=== PATIENT | male | born 1975 | race African-American/Black ===

== ENCOUNTER 2016-12-18 12:59 | Inpatient (IN) | payer OTHER ==
[2016-12-18 13:28] VITALS: BMI 22.0
--- NOTE | 2016-12-18 14:37 | HP ---
COWS - Scale Resting Pulse: 0= ND 80 or Below Sweatin= Chills/Flushing Restless Observation: 3= Extraneous Movement Pupil Size: 2= Moderately Dilated Bone or Joint Aches: 4=Acute Joint/Muscle Pain Runny Nose/ Eye Tearin= Runny Nose/Eyes GI Upset > 30mins: 1= Stomach Cramp Tremor Observation: 2= Slight Tremor Visible Yawning Observation: 2= >3x During Session Anxiety or Irritability: 2=Irritable/Anxious Goose Flesh Skin: 0=Smooth Skin COWS Score: 19 Admission ROS S - HPI Chief Complaint: DETOX TX FOR HEROIN DEPENDENCE Allergies/Adverse Reactions: Allergies Allergy/AdvReac Type Severity Reaction Status Date / Time No Known Allergies Allergy Verified 12/18/16 13:59 History of Present Illness: 41 Y/O AA/MALE WITH A HX OF HEROIN DEPENDENCE SEEKING DETOX [place] Exam Limitations: No Limitations - Ebola screening Have you traveled outside of the country in the last 21 days: No Have you had contact with anyone from an Ebola affected area: No Have you been sick,other than usual withdrawal symptoms: No Do you have a fever: No - Review of Systems Constitutional: Chills, Loss of Appetite, Night Sweats, Changes in sleep, Unintentional Wgt. Loss EENT: reports: Tearing, Nose Congestion, Dental Problems (MISSING TEETH) Respiratory: reports: Cough, Productive cough (YELLOWISH WHITE SPUTUM) Cardiac: reports: Lightheadedness GI: reports: Constipated, Diarrhea, Nausea, Poor Appetite, Poor Fluid Intake, Vomiting : reports: Dysuria (DUE TO ACTIVE HEROIN USE) Musculoskeletal: reports: Back Pain, Joint Pain, Muscle Pain Integumentary: reports: Dryness Neuro: reports: Headache, Numbness, Tingling, Tremors, Unsteady Gait, Dizziness Endocrine: reports: No Symptoms Reported Hematology: reports: Anemia (X 1.) Psychiatric: reports: Orientated x3, Anxious Other Systems: Reviewed and Negative Patient History - Patient Medical History Hx Anemia: Yes (X 1. NO CURRENT MED) Hx Asthma: No Hx Chronic Obstructive Pulmonary Disease (COPD): No Hx Cardiac Disorders: No Hx Hypertension: No Hx Hypercholesterolemia: No HX Cerebrovascular Accident: No Hx Seizures: No Hx Diabetes: No Hx Gastrointestinal Disorders: No Hx Genitourinary Disorders: No Hx Sexually Transmitted Disorders: No Hx Renal Disease (ESRD): No Hx Thyroid Disease: No Hx Human Immunodeficiency Virus (HIV): No (NEGATIVE HX) Hx Hepatitis C: No Hx Depression: No Hx Suicide Attempt: No (DENIES) Hx Schizophrenia: No - Patient Surgical History Past Surgical History: No Hx Neurologic Surgery: No Hx Cataract Extraction: No Hx Cardiac Surgery: No Hx Lung Surgery: No Hx Breast Surgery: No Hx Breast Biopsy: No Hx Abdominal Surgery: No Hx Appendectomy: No Hx Cholecystectomy: No Hx Genitourinary Surgery: No Hx Orthopedic Surgery: No Anesthesia Reaction: No - PPD History Previous Implant?: Yes Documented Results: Negative w/o proof Implanted On Prior [facility] Admission?: No PPD to be Administered?: Yes - Reproductive History Patient is a Female of Child Bearing Age (11 -55 yrs old): No (MALE) - Smoking Cessation Smoking history: Current every day smoker Have you smoked in the past 12 months: Yes Aproximately how many cigarettes per day: 20 Hx Chewing Tobacco Use: No Initiated information on smoking cessation: Yes 'Breaking Loose' booklet given: 12/18/16 - Substance & Tx. History Hx Alcohol Use: No (DENIES) Hx Substance Use: Yes (HEROIN) Substance Use Type: Heroin Hx Substance Use Treatment: Yes ([facility]) - Substances Abused Heroin Route: Inhalation Frequency: Daily Amount used: 10 bags Age of first use: 34 Date of Last Use: 12/18/16 Family Disease History - Family Disease History Family Disease History: Diabetes: Mother (HTN), CA: Grandparent (), Father (ALCOHOLISM-), Other: Father, Mother Admission Physical Exam BHS - Vital Signs Vital Signs: Vital Signs - 24 hr 12/18/16 13:20 Temperature 96.9 F L Pulse Rate 61 Respiratory 18 Rate Blood Pressure 120/70 - Physical General Appearance: Yes: Moderate Distress, Thin, Irritable, Anxious HEENTM: Yes: EOMI, RAFIA, Pharynx Normal, Nasal Congestion, Rhinorrhea Respiratory: Yes: Chest Non-Tender, Lungs Clear, Normal Breath Sounds, No Respiratory Distress Neck: Yes: Supple, Trachea in good position Breast: Yes: Breast Exam Deferred Cardiology: Yes: Regular Rhythm, Regular Rate, S1, S2 Abdominal: Yes: Normal Bowel Sounds, Non Tender, Flat, Soft Genitourinary: Yes: Other (N/C) Back: Yes: Within Normal Limits Musculoskeletal: Yes: full range of Motion, Gait Steady Extremities: Yes: Normal Range of Motion, Non-Tender 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
[2016-12-18] MEDS ORDERED: NICOTINE POLACRILEX 2 MG GUM BC PRN ×2 (14:51→14:55)
[2016-12-18] MEDS ORDERED: hydrOXYzine PAMOATE 25 MG CAPSULE (FP) PO PRN (14:51)
[2016-12-18] MEDS ORDERED: MENTHOL/PHENOL 1 EACH UD MM PRN (14:51)
[2016-12-18] MEDS ORDERED: MAG HYDROX/AL HYDROX/SIMETH 30 ML UNIT-DOSE CUP PO PRN (14:51)
[2016-12-18] MEDS ORDERED: P-EPHED 60MG/TRIPROLIDI 2.5MG TABLET PO PRN (14:51)
[2016-12-18] MEDS ORDERED: diphenhydrAMINE HCL 50 MG CAPSULE PO PRN (14:51)
[2016-12-18] MEDS ORDERED: ACETAMINOPHEN 325 MG TABLET (FP) PO PRN (14:51)
[2016-12-18] MEDS ORDERED: LOPERAMIDE HCL 2 MG CAPSULE PO PRN (14:51)
[2016-12-18] MEDS ORDERED: MAGNESIUM HYDROX 2400MG/30ML ORAL SUSPENSION 30 ML CUP PO PRN (14:51)
[2016-12-18] MEDS ORDERED: MAGNESIUM CITRATE 300 ML BOTTLE PO PRN (14:51)
[2016-12-18] MEDS ORDERED: guaiFENesin/D-METHORPHAN HB 10 ML UNIT-DOSE CUPS PO PRN (14:51)
[2016-12-18] MEDS ORDERED: NICOTINE 14 MG/24 HOURS TOPICAL PATCH TD SCH (15:00)
[2016-12-18] MEDS ORDERED: METHADONE HCL 10 MG TABLET (FOR DETOX USE ONLY) PO ONE ×2 (17:30→23:00)
[2016-12-18] MEDS: NICOTINE 14 MG/24 HOURS TOPICAL PATCH TD SCH (18:00)
[2016-12-18] MEDS: diazePAM 5 MG TABLET PO PRN ×2 (18:02→22:10)
[2016-12-18] MEDS: THIAMINE HCL 100 MG TABLET (FP) PO SCH (22:10)
[2016-12-19] MEDS: diazePAM 5 MG TABLET PO PRN ×4 (06:58→22:52)
[2016-12-19] MEDS ORDERED: METHADONE HCL 10 MG TABLET (FOR DETOX USE ONLY) PO ONE (10:00)
[2016-12-19 10:50] LABS: MCH 31.9 pg (25.7-33.7); MCHC 33.3 g/dl (32.0-35.9); MEAN CELL VOLUME 95.6 fl (80-96); MEAN PLT VOLUME 7.7 fl (7.5-11.1); PLATELET COUNT 302 K/MM3 (134-434); RDW 12.5 % (11.9-15.9)
[2016-12-19 10:52] LABS: ALBUMIN 3.8 g/dl (3.4-5.0); ANION GAP 7 (8-16); CALCIUM 8.7 mg/dL (8.5-10.1); CO2 32 mmol/L (21-32); GLUCOSE,RANDOM 96 mg/dL (74-106)
[2016-12-19 10:55] LABS: ALK PHOS 64 U/L (45-117); BILIRUBIN,TOTAL 0.9 mg/dL (0.2-1.0); COCKROFT - GAULT 99.46; CREATININE 0.9 mg/dL (0.7-1.3); SGOT/AST 28 U/L (15-37); SGPT/ALT 24 U/L (12-78); TOT PROT 6.5 g/dl (6.4-8.2)
[2016-12-19] MEDS: PRENATAL VITAMINS W/ FOLIC ACID TABLET (FP) PO SCH (10:57)
[2016-12-19] MEDS: NICOTINE 14 MG/24 HOURS TOPICAL PATCH TD SCH (10:57)
--- NOTE | 2016-12-19 12:09 | PN ---
BHS COWS - Scale Resting Pulse: 2= ME 101-120 Sweatin=Flushed/Facial Moisture Restless Observation: 3= Extraneous Movement Pupil Size: 1= Pupils >than Normal Bone or Joint Aches: 2= Severe Diffuse Aches Runny Nose/ Eye Tearin= Runny Nose/Eyes GI Upset > 30mins: 3= Vomiting/Diarrhea Tremor Observation of Outstretched Hands: 2= Slight Tremor Visible Yawning Observation: 1= 1-2x During Session Anxiety or Irritability: 2=Irritable/Anxious Goose Flesh Skin: 0=Smooth Skin COWS Score: 20 BHS Progress Note (SOAP) Subjective: ALERT,IRRITABLE,ANXIOUS,INTERRUPTED SLEEP,PAIN IN THE BODY AND BACK Objective: 12/19/16 12:07 Vital Signs Temperature 97.7 F 12/19/16 09:54 Pulse Rate 103 H 12/19/16 09:54 Respiratory Rate 18 12/19/16 09:54 Blood Pressure 126/71 12/19/16 09:54 O2 Sat by Pulse Oximetry (%) EKG SINUS BRADYCARDIA 41/MIN NO CHEST PAIN,NO SOB,NO DIZZINESS Laboratory Last Values WBC 9.0 K/mm3 (4.0-10.0) 12/19/16 06:00 RBC 4.29 M/mm3 (4.00-5.60) 12/19/16 06:00 Hgb 13.7 GM/dL (11.7-16.9) 12/19/16 06:00 Hct 41.0 % (35.4-49) 12/19/16 06:00 MCV 95.6 fl (80-96) 12/19/16 06:00 MCHC 33.3 g/dl (32.0-35.9) 12/19/16 06:00 RDW 12.5 % (11.9-15.9) 12/19/16 06:00 Plt Count 302 K/MM3 (134-434) 12/19/16 06:00 MPV 7.7 fl (7.5-11.1) 12/19/16 06:00 Sodium 141 mmol/L (136-145) 12/19/16 06:00 Potassium 4.9 mmol/L (3.5-5.1) 12/19/16 06:00 Chloride 102 mmol/L (98-107) 12/19/16 06:00 Carbon Dioxide 32 mmol/L (21-32) 12/19/16 06:00 Anion Gap 7 (8-16) L 12/19/16 06:00 BUN 10 mg/dL (7-18) 12/19/16 06:00 Creatinine 0.9 mg/dL (0.7-1.3) 12/19/16 06:00 Creat Clearance w eGFR > 60 (>60) 12/19/16 06:00 Random Glucose 96 mg/dL (74-106) 12/19/16 06:00 Calcium 8.7 mg/dL (8.5-10.1) 12/19/16 06:00 Total Bilirubin 0.9 mg/dL (0.2-1.0) 12/19/16 06:00 AST 28 U/L (15-37) 12/19/16 06:00 ALT 24 U/L (12-78) 12/19/16 06:00 Alkaline Phosphatase 64 U/L (45-117) 12/19/16 06:00 Total Protein 6.5 g/dl (6.4-8.2) 12/19/16 06:00 Albumin 3.8 g/dl (3.4-5.0) 12/19/16 06:00 Assessment: 12/19/16 12:08 WITHDRAWAL SYMPTOM Plan: CONTINUE DETOX
[2016-12-19 12:14] LABS: SICKLE CELL SCREEN NEGATIVE (NEGATIVE)
--- NOTE | 2016-12-19 12:33 | EKG ---
Test Reason : Blood Pressure : / mmHG Vent. Rate : 043 BPM Atrial Rate : 043 BPM P-R Int : 146 ms QRS Dur : 084 ms QT Int : 474 ms P-R-T Axes : 069 093 065 degrees QTc Int : 400 ms MARKED SINUS BRADYCARDIA RIGHTWARD AXIS SEPTAL INFARCT , AGE UNDETERMINED ABNORMAL ECG NO PREVIOUS ECGS AVAILABLE Confirmed by JULIENNE ARGUETA MD ([id number]) on 12/19/2016 12:33:07 PM Referred By: Confirmed By:JULIENNE ARGUETA MD
[2016-12-19] MEDS: THIAMINE HCL 100 MG TABLET (FP) PO SCH (22:52)
[2016-12-20] MEDS ORDERED: METHADONE HCL 5 MG TABLET (FOR DETOX USE ONLY) PO ONE (10:00)
--- NOTE | 2016-12-20 10:24 | PN ---
BHS COWS - Scale Resting Pulse: 1= NM 81-100 Sweatin= Chills/Flushing Restless Observation: 3= Extraneous Movement Pupil Size: 1= Pupils >than Normal Bone or Joint Aches: 2= Severe Diffuse Aches Runny Nose/ Eye Tearin= Runny Nose/Eyes GI Upset > 30mins: 2= Nausea/Diarrhea Tremor Observation of Outstretched Hands: 2= Slight Tremor Visible Yawning Observation: 1= 1-2x During Session Anxiety or Irritability: 2=Irritable/Anxious Goose Flesh Skin: 0=Smooth Skin COWS Score: 17 S Progress Note (SOAP) Subjective: ALERT,IRRITABLE,ANXIOUS,INTERRUPTED SLEEP,PAIN IN THE BODY AND BACK Objective: 12/20/16 10:23 Vital Signs Temperature 96.0 F L 12/20/16 06:28 Pulse Rate 71 12/20/16 06:28 Respiratory Rate 18 12/20/16 06:28 Blood Pressure 120/77 12/20/16 06:28 O2 Sat by Pulse Oximetry (%) Laboratory Last Values WBC 9.0 K/mm3 (4.0-10.0) 12/19/16 06:00 RBC 4.29 M/mm3 (4.00-5.60) 12/19/16 06:00 Hgb 13.7 GM/dL (11.7-16.9) 12/19/16 06:00 Hct 41.0 % (35.4-49) 12/19/16 06:00 MCV 95.6 fl (80-96) 12/19/16 06:00 MCHC 33.3 g/dl (32.0-35.9) 12/19/16 06:00 RDW 12.5 % (11.9-15.9) 12/19/16 06:00 Plt Count 302 K/MM3 (134-434) 12/19/16 06:00 MPV 7.7 fl (7.5-11.1) 12/19/16 06:00 Sickle Cell Screen Negative (NEGATIVE) 12/19/16 06:00 Sodium 141 mmol/L (136-145) 12/19/16 06:00 Potassium 4.9 mmol/L (3.5-5.1) 12/19/16 06:00 Chloride 102 mmol/L (98-107) 12/19/16 06:00 Carbon Dioxide 32 mmol/L (21-32) 12/19/16 06:00 Anion Gap 7 (8-16) L 12/19/16 06:00 BUN 10 mg/dL (7-18) 12/19/16 06:00 Creatinine 0.9 mg/dL (0.7-1.3) 12/19/16 06:00 Creat Clearance w eGFR > 60 (>60) 12/19/16 06:00 Random Glucose 96 mg/dL (74-106) 12/19/16 06:00 Calcium 8.7 mg/dL (8.5-10.1) 12/19/16 06:00 Total Bilirubin 0.9 mg/dL (0.2-1.0) 12/19/16 06:00 AST 28 U/L (15-37) 12/19/16 06:00 ALT 24 U/L (12-78) 12/19/16 06:00 Alkaline Phosphatase 64 U/L (45-117) 12/19/16 06:00 Total Protein 6.5 g/dl (6.4-8.2) 12/19/16 06:00 Albumin 3.8 g/dl (3.4-5.0) 12/19/16 06:00 RPR Titer Nonreactive (NONREACTIVE) 12/19/16 06:00 Assessment: 12/20/16 10:23 WITHDRAWAL SYMPTOM Plan: CONTINUE DETOX
[2016-12-20] MEDS: PRENATAL VITAMINS W/ FOLIC ACID TABLET (FP) PO SCH (11:06)
[2016-12-20] MEDS: diazePAM 5 MG TABLET PO PRN ×3 (11:07→23:06)
[2016-12-20] MEDS: NICOTINE 14 MG/24 HOURS TOPICAL PATCH TD SCH (11:07)
[2016-12-20] MEDS: THIAMINE HCL 100 MG TABLET (FP) PO SCH (22:55)
[2016-12-21] MEDS: diazePAM 5 MG TABLET PO PRN ×2 (07:52→11:39)
[2016-12-21] MEDS: IBUPROFEN 400 MG TABLET (FP) PO PRN ×2 (07:52→13:53)
[2016-12-21] MEDS ORDERED: METHADONE HCL 5 MG TABLET (FOR DETOX USE ONLY) PO ONE (10:00)
[2016-12-21] MEDS: PRENATAL VITAMINS W/ FOLIC ACID TABLET (FP) PO SCH (11:37)
[2016-12-21] MEDS: NICOTINE 14 MG/24 HOURS TOPICAL PATCH TD SCH (11:38)
[2016-12-21] MEDS ORDERED: ONDANSETRON *ODT* 4 MG TABLET SL PRN (12:04)
[2016-12-21] MEDS: LIDOCAINE 5% TOPICAL PATCH TP SCH (15:00)
--- NOTE | 2016-12-21 17:04 | PN ---
BHS Progress Note (SOAP) Subjective: Tremors, H/A, Sweating, Nausea, Body Aches. Objective: PT. A & O X (DISORIENTED ABOUT DAY / DATE). PT. OBSERVED AMBULATING ON UNIT. 12/21/16 17:02 Vital Signs Temperature 97.7 F 12/21/16 14:28 Pulse Rate 90 12/21/16 14:28 Respiratory Rate 18 12/21/16 14:28 Blood Pressure 128/68 12/21/16 14:28 O2 Sat by Pulse Oximetry (%) Laboratory Last Values WBC 9.0 K/mm3 (4.0-10.0) 12/19/16 06:00 RBC 4.29 M/mm3 (4.00-5.60) 12/19/16 06:00 Hgb 13.7 GM/dL (11.7-16.9) 12/19/16 06:00 Hct 41.0 % (35.4-49) 12/19/16 06:00 MCV 95.6 fl (80-96) 12/19/16 06:00 MCHC 33.3 g/dl (32.0-35.9) 12/19/16 06:00 RDW 12.5 % (11.9-15.9) 12/19/16 06:00 Plt Count 302 K/MM3 (134-434) 12/19/16 06:00 MPV 7.7 fl (7.5-11.1) 12/19/16 06:00 Sickle Cell Screen Negative (NEGATIVE) 12/19/16 06:00 Sodium 141 mmol/L (136-145) 12/19/16 06:00 Potassium 4.9 mmol/L (3.5-5.1) 12/19/16 06:00 Chloride 102 mmol/L (98-107) 12/19/16 06:00 Carbon Dioxide 32 mmol/L (21-32) 12/19/16 06:00 Anion Gap 7 (8-16) L 12/19/16 06:00 BUN 10 mg/dL (7-18) 12/19/16 06:00 Creatinine 0.9 mg/dL (0.7-1.3) 12/19/16 06:00 Creat Clearance w eGFR > 60 (>60) 12/19/16 06:00 Random Glucose 96 mg/dL (74-106) 12/19/16 06:00 Calcium 8.7 mg/dL (8.5-10.1) 12/19/16 06:00 Total Bilirubin 0.9 mg/dL (0.2-1.0) 12/19/16 06:00 AST 28 U/L (15-37) 12/19/16 06:00 ALT 24 U/L (12-78) 12/19/16 06:00 Alkaline Phosphatase 64 U/L (45-117) 12/19/16 06:00 Total Protein 6.5 g/dl (6.4-8.2) 12/19/16 06:00 Albumin 3.8 g/dl (3.4-5.0) 12/19/16 06:00 RPR Titer Nonreactive (NONREACTIVE) 12/19/16 06:00 LABS NOTED. Assessment: 12/21/16 17:03 WITHDRAWAL SYMPTOMS. Plan: CONTINUE DETOX. ADVISED PATIENT TO FOLLOW-UP WITH [facility] / REHAB MEDICAL PROVIDER AFTER DISCHARGE FROM DETOX FOR GENERAL MEDICAL ASSESSMENT AND FOR ABNORMAL ADMISSION LAB VALUES.
[2016-12-21] MEDS: THIAMINE HCL 100 MG TABLET (FP) PO SCH (22:56)
[2016-12-22] MEDS ORDERED: METHADONE HCL 10 MG TABLET (FOR DETOX USE ONLY) PO ONE (10:00)
[2016-12-22] MEDS: PRENATAL VITAMINS W/ FOLIC ACID TABLET (FP) PO SCH (11:01)
[2016-12-22] MEDS: LIDOCAINE 5% TOPICAL PATCH TP SCH (11:02)
[2016-12-22] MEDS: NICOTINE 14 MG/24 HOURS TOPICAL PATCH TD SCH (11:03)
--- NOTE | 2016-12-22 11:31 | PN ---
BHS Progress Note (SOAP) Subjective: Sweating,interrupted sleep,restless Objective: 12/22/16 11:29 Vital Signs - 8 hr 12/22/16 12/22/16 12/22/16 03:30 06:00 10:00 Temperature 97.1 F L 99.0 F Pulse Rate 73 92 H Respiratory 18 18 18 Rate Blood Pressure 125/68 127/73 Laboratory Last Values WBC 9.0 K/mm3 (4.0-10.0) 12/19/16 06:00 RBC 4.29 M/mm3 (4.00-5.60) 12/19/16 06:00 Hgb 13.7 GM/dL (11.7-16.9) 12/19/16 06:00 Hct 41.0 % (35.4-49) 12/19/16 06:00 MCV 95.6 fl (80-96) 12/19/16 06:00 MCHC 33.3 g/dl (32.0-35.9) 12/19/16 06:00 RDW 12.5 % (11.9-15.9) 12/19/16 06:00 Plt Count 302 K/MM3 (134-434) 12/19/16 06:00 MPV 7.7 fl (7.5-11.1) 12/19/16 06:00 Sickle Cell Screen Negative (NEGATIVE) 12/19/16 06:00 Sodium 141 mmol/L (136-145) 12/19/16 06:00 Potassium 4.9 mmol/L (3.5-5.1) 12/19/16 06:00 Chloride 102 mmol/L (98-107) 12/19/16 06:00 Carbon Dioxide 32 mmol/L (21-32) 12/19/16 06:00 Anion Gap 7 (8-16) L 12/19/16 06:00 BUN 10 mg/dL (7-18) 12/19/16 06:00 Creatinine 0.9 mg/dL (0.7-1.3) 12/19/16 06:00 Creat Clearance w eGFR > 60 (>60) 12/19/16 06:00 Random Glucose 96 mg/dL (74-106) 12/19/16 06:00 Calcium 8.7 mg/dL (8.5-10.1) 12/19/16 06:00 Total Bilirubin 0.9 mg/dL (0.2-1.0) 12/19/16 06:00 AST 28 U/L (15-37) 12/19/16 06:00 ALT 24 U/L (12-78) 12/19/16 06:00 Alkaline Phosphatase 64 U/L (45-117) 12/19/16 06:00 Total Protein 6.5 g/dl (6.4-8.2) 12/19/16 06:00 Albumin 3.8 g/dl (3.4-5.0) 12/19/16 06:00 RPR Titer Nonreactive (NONREACTIVE) 12/19/16 06:00 labs noted Assessment: 12/22/16 11:30 Withdrawal sx. Plan: continue detox
[2016-12-22] MEDS: THIAMINE HCL 100 MG TABLET (FP) PO SCH (22:33)
[2016-12-23] MEDS ORDERED: METHADONE HCL 5 MG TABLET (FOR DETOX USE ONLY) PO ONE (06:00)
--- NOTE | 2016-12-23 09:02 | DS ---
[facility] Detox Discharge Summary Admission Date: 12/18/16 Discharge Date: 12/23/16 - History Present History: Opioid Dependence - Physical Exam Results Vital Signs: Vital Signs Temperature 97.7 F 12/23/16 06:15 Pulse Rate 89 12/23/16 06:15 Respiratory Rate 18 12/23/16 06:15 Blood Pressure 114/72 12/23/16 06:15 O2 Sat by Pulse Oximetry (%) - Treatment Hospital Course: Detox Protocol Followed, Detoxed Safely, Responded well, Discharged Condition Good - Medication Discharge Medications: Ambulatory Orders NK [No Known Home Medication] 12/18/16 - Diagnosis (1) Opioid dependence with withdrawal Current Visit: Yes Status: Acute - AMA Did Patient Leave Against Medical Advice: No
[2016-12-23 09:18] VITALS: BP 147/81; PULSE 101; TEMP 98.1
== END 2016-12-23 09:33 | disposition home or self-care (01) | DRG 773 ==
LOC: YASAS 12:59 → Y6N 16:36
PROVIDERS: ADMIT Internal Medicine Addiction Medicine; ATTEND Internal Medicine Addiction Medicine
PROC: HZ2ZZZZ Detoxification Services for Substance Abuse Treatment (ICD-10-PCS; principal; 2016-12-18)
DX: F11.23 Opioid dependence with withdrawal (principal); F17.210 Nicotine dependence, cigarettes, uncomplicated; R00.1 Bradycardia, unspecified; Z86.2 Personal history of diseases of the blood and blood-forming organs and certain disorders involving the immune mechanism
CPT/HCPCS: 36415; 80053; 85027; 85660; 86593; 93005; 93010

== ENCOUNTER 2018-12-11 10:33 | Inpatient (IN) | payer OTHER ==
[2018-12-11 10:54] VITALS: BMI 19.8
--- NOTE | 2018-12-11 11:28 | HP ---
COWS - Scale Resting Pulse: 0= OK 80 or Below Sweatin= Chills/Flushing Restless Observation: 1= Difficult to Sit Still Pupil Size: 0= Normal to Room Light Bone or Joint Aches: 2= Severe Diffuse Aches Runny Nose/ Eye Tearin= Runny Nose/Eyes GI Upset > 30mins: 1= Stomach Cramp Tremor Observation: 0= None Yawning Observation: 0= None Anxiety or Irritability: 2=Irritable/Anxious Goose Flesh Skin: 0=Smooth Skin COWS Score: 9 CIWA Score - Admission Criteria OAS Guidelines: Admission for Medically Managed Detox: Requires at least one of the followin. CIWA greater than 12 2. Seizures within the past 24 hours 3. Delirium tremens within the past 24 hours 4. Hallucinations within the past 24 hours 5. Acute intervention needed for co occurring medical disorder 6. Acute intervention needed for co occurring psychiatric disorder 7. Severe withdrawal that cannot be handled at a lower level of care (continued vomiting, continued diarrhea, abnormal vital signs) requiring intravenous medication and/or fluids 8. Admission ROS [facility] Allergies/Adverse Reactions: Allergies Allergy/AdvReac Type Severity Reaction Status Date / Time No Known Allergies Allergy Verified 12/11/18 10:48 History of Present Illness: Search Terms: ruddy lee, 1975 Search Date: 12/11/2018 11:23:53 AM The Drug Utilization Report below displays all of the controlled substance prescriptions, if any, that your patient has filled in the last twelve months. The information displayed on this report is compiled from pharmacy submissions to the Department, and accurately reflects the information as submitted by the pharmacies. This report was requested by: Neris Hernandez | Reference #: [id number] Others' Prescriptions Patient Name: Ruddy Lee Jr Date: 1975 Address: [address] [place] [address] [address] [id number] Sex: Male Rx Written Rx Dispensed Drug Quantity Days Supply Prescriber Name 11/04/2018 11/04/2018 suboxone 8 mg-2 mg sl film 28 14 Roxy Paula 10/28/2018 10/28/2018 suboxone 8 mg-2 mg sl film 14 7 Roxy Paula 10/14/2018 10/14/2018 suboxone 8 mg-2 mg sl film 16 8 Roxy Paula 10/07/2018 10/07/2018 suboxone 8 mg-2 mg sl film 14 7 [place], Roxy 09/30/2018 09/30/2018 suboxone 8 mg-2 mg sl film 14 7 [place], Roxy 09/23/2018 09/23/2018 suboxone 8 mg-2 mg sl film 11 7 Roxy Paula * - Drugs marked with an asterisk are compound drugs. If the compound drug is made up of more than one controlled substance, then each controlled substance will be a separate row reports participation in an outpt program [facility] in [place], latest 3 weeks ago , reports sobriety during participation i program, states left because " I didn't like it , it was too much pressure " , reports had appt MAGALY Arthur yesterday postponed for a housing appt . 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 Latest use earlier today , current symptoms as above. cocaine : rare use 2 x/month. tobacco ; 1 ppd PMHX : denies PSHx : denies Psych : denies , no current SI / HI Meds : denies SHx : correction in [place] , unemployed , denies legal issues . - Ebola screening Have you traveled outside of the country in the last 21 days: No Have you had contact with anyone from an Ebola affected area: No - Review of Systems Constitutional: See HPI EENT: reports: See HPI, Other (denies vision loss , denies dysphagia) Respiratory: reports: No Symptoms reported Cardiac: reports: No Symptoms Reported GI: reports: See HPI : reports: No Symptoms Reported Musculoskeletal: reports: Back Pain, Joint Pain, Muscle Pain Integumentary: reports: No Symptoms Reported Neuro: reports: No Symptoms reported Endocrine: reports: No Symptoms Reported Psychiatric: reports: Orientated x3, Anxious Patient History - Patient Medical History Hx Anemia: Yes (X 1. NO CURRENT MED) Hx Asthma: No Hx Chronic Obstructive Pulmonary Disease (COPD): No Hx Cardiac Disorders: No Hx Hypertension: No Hx Hypercholesterolemia: No HX Cerebrovascular Accident: No Hx Seizures: No Hx Diabetes: No Hx Gastrointestinal Disorders: No Hx Genitourinary Disorders: No Hx Sexually Transmitted Disorders: No Hx Renal Disease (ESRD): No Hx Thyroid Disease: No Hx Human Immunodeficiency Virus (HIV): No (NEGATIVE HX) Hx Hepatitis C: No Hx Depression: No Hx Suicide Attempt: No (DENIES) Hx Schizophrenia: No - Patient Surgical History Past Surgical History: No Hx Neurologic Surgery: No Hx Cataract Extraction: No Hx Cardiac Surgery: No Hx Lung Surgery: No Hx Breast Surgery: No Hx Breast Biopsy: No Hx Abdominal Surgery: No Hx Appendectomy: No Hx Cholecystectomy: No Hx Genitourinary Surgery: No Hx Section: No Hx Orthopedic Surgery: No Anesthesia Reaction: No - PPD History Date: 12/20/16 - Smoking Cessation Smoking history: Current every day smoker Have you smoked in the past 12 months: Yes Aproximately how many cigarettes per day: 20 Hx Chewing Tobacco Use: No Initiated information on smoking cessation: No - Substances abused Heroin Substance route: Inhalation Frequency: Daily Amount used: 25 bags Age of first use: 39 Date of last use: 12/11/18 Cocaine Substance route: Inhalation Frequency: 1-3 times last 30 days Amount used: 1 gram Age of first use: 16 Date of last use: 12/11/18 Family Disease History - Family Disease History Family Disease History: Diabetes: Mother (HTN), CA: Grandparent (), Father (ALCOHOLISM-), Other: Father, Mother Admission Physical Exam BHS - Vital Signs Vital Signs: Vital Signs - 24 hr 12/11/18 10:49 Temperature 98 F Pulse Rate 76 Respiratory 18 Rate Blood Pressure 158/76 - Physical General Appearance: Yes: Mild Distress, Anxious HEENTM: Yes: EOMI, Hearing grossly Normal, Normocephalic, Normal Voice, Nasal Congestion, Rhinorrhea, Other (poor dentition , missing teeth) Respiratory: Yes: Chest Non-Tender, Lungs Clear, Normal Breath Sounds Neck: Yes: No masses,lesions,Nodules, Trachea in good position Cardiology: Yes: Regular Rhythm, Regular Rate, S1, S2 Abdominal: Yes: Non Tender, Soft Back: Yes: Normal Inspection Musculoskeletal: Yes: full range of Motion Extremities: Yes: Normal Range of Motion, Non-Tender Neurological: Yes: Fully Oriented, Alert, Motor Strength 5/5 Integumentary: Yes: Warm - Diagnostic (1) Cocaine use disorder Current Visit: Yes Status: Chronic (2) Nicotine dependence Current Visit: Yes Status: Chronic Qualifiers: Nicotine product type: cigarettes (3) Opioid dependence with withdrawal Current Visit: Yes Status: Acute Breathalyzer - Breathalyzer Breathalyzer: 0 Urine Drug Screen - Test Device Lot number: [id number] Expiration date: 07/31/20 - Control Is test valid?: Yes - Results Drug screen NEGATIVE: No Urine drug screen results: MARY-Cocaine, FEN-Fentanyl, MOP-Opiates Inpatient Rehab Admission - Rehab Decision to Admit Inpatient rehab admission?: No
[2018-12-11] MEDS ORDERED: MAGNESIUM HYDROX 2400MG/30ML ORAL SUSPENSION 30 ML CUP PO PRN (11:40)
[2018-12-11] MEDS ORDERED: BISMUTH SUBSALICYLATE 262 MG/15 ML BTL PO PRN (11:40)
[2018-12-11] MEDS ORDERED: ACETAMINOPHEN 325 MG TABLET (FP) PO PRN ×2 (11:40)
[2018-12-11] MEDS ORDERED: IBUPROFEN 400 MG TABLET (FP) PO PRN (11:40)
[2018-12-11] MEDS ORDERED: NICOTINE POLACRILEX 2 MG GUM BUC PRN (11:40)
[2018-12-11] MEDS ORDERED: MENTHOL/PHENOL 1 EACH UD MM PRN (11:40)
[2018-12-11] MEDS ORDERED: MAG HYDROX/AL HYDROX/SIMETH 30 ML UNIT-DOSE CUP PO PRN (11:40)
[2018-12-11] MEDS ORDERED: MAGNESIUM CITRATE 300 ML BOTTLE PO PRN (11:40)
--- NOTE | 2018-12-11 13:44 | EKG ---
Test Reason : Blood Pressure : / mmHG Vent. Rate : 061 BPM Atrial Rate : 061 BPM P-R Int : 144 ms QRS Dur : 086 ms QT Int : 428 ms P-R-T Axes : 071 083 055 degrees QTc Int : 430 ms NORMAL SINUS RHYTHM NORMAL ECG WHEN COMPARED WITH ECG OF 18-DEC-2016 17:07, CRITERIA FOR SEPTAL INFARCT ARE NO LONGER PRESENT Confirmed by SHAWNEE GREGORIO, LETITIA ([id number]) on 12/11/2018 1:44:37 PM Referred By: Confirmed By:LETITIA MALLORY MD
[2018-12-11 14:04] LABS: HEMATOCRIT 41.8 % (35.4-49); HEMOGLOBIN 13.8 GM/dL (11.7-16.9); MCH 31.6 pg (25.7-33.7); MCHC 32.9 g/dl (32.0-35.9); MEAN CELL VOLUME 96.2 fl (80-96); MEAN PLT VOLUME 6.6 fl (7.5-11.1); PLATELET COUNT 336 K/MM3 (134-434); RBC 4.35 M/mm3 (4.00-5.60); RDW 12.5 % (11.9-15.9); WHITE BLOOD COUNT 8.5 K/mm3 (4.0-10.0)
[2018-12-11 14:24] LABS: ALK PHOS 56 U/L (45-117); ANION GAP 5 MMOL/L (8-16); BLOOD UREA NITROGEN 9 mg/dL (7-18); CALCIUM 8.8 mg/dL (8.5-10.1); CHLORIDE 104 mmol/L (98-107); CO2 30 mmol/L (21-32); CREATININE 0.7 mg/dL (0.55-1.3); GLUCOSE,RANDOM 85 mg/dL (74-106); POTASSIUM 4.2 mmol/L (3.5-5.1); SGOT/AST 19 U/L (15-37); SGPT/ALT 19 U/L (13-61); SODIUM 138 mmol/L (136-145); TOT PROT 6.8 g/dl (6.4-8.2)
[2018-12-11] MEDS: cloNIDine HCL 0.1 MG TABLET PO PRN (15:40)
[2018-12-11] MEDS: METHOCARBAMOL 500 MG TABLET PO PRN ×2 (15:40→22:11)
[2018-12-11] MEDS: THIAMINE HCL 100 MG TABLET (FP) PO SCH (22:10)
[2018-12-11] MEDS: MELATONIN 5 MG TABLETS PO PRN (22:12)
[2018-12-11] MEDS ORDERED: METHADONE HCL 10 MG TABLET (FOR DETOX USE ONLY) PO ONE (23:00)
[2018-12-12] MEDS ORDERED: METHADONE HCL 10 MG TABLET (FOR DETOX USE ONLY) ONE (08:31)
[2018-12-12] MEDS ORDERED: METHADONE HCL 5 MG TABLET (FOR DETOX USE ONLY) ONE (08:32)
[2018-12-12] MEDS: PRENATAL VITAMINS W/ FOLIC ACID TABLET (FP) PO SCH (09:47)
[2018-12-12] MEDS: METHOCARBAMOL 500 MG TABLET PO PRN ×2 (09:50→22:31)
[2018-12-12] MEDS ORDERED: METHADONE HCL 10 MG TABLET (FOR DETOX USE ONLY) PO ONE (10:00)
[2018-12-12] MEDS ORDERED: METHADONE (DETOX) 20 MG, METHADONE (DETOX) 5 MG PO ONE (10:00)
--- NOTE | 2018-12-12 13:23 | PN ---
BHS COWS - Scale Resting Pulse: 0= SC 80 or Below Sweatin= Chills/Flushing Restless Observation: 0= Sits Still Pupil Size: 0= Normal to Room Light Bone or Joint Aches: 2= Severe Diffuse Aches Runny Nose/ Eye Tearin= None GI Upset > 30mins: 2= Nausea/Diarrhea Tremor Observation of Outstretched Hands: 2= Slight Tremor Visible Yawning Observation: 2= >3x During Session Anxiety or Irritability: 2=Irritable/Anxious Goose Flesh Skin: 0=Smooth Skin COWS Score: 11 BHS Progress Note (SOAP) Subjective: Sweating, Stomach Cramping, Body Aches, Nausea, Diarrhea, H/A, Tremors. Objective: PATIENT A & O X 3, OBSERVED AMBULATING ON UNIT. IN NO ACUTE DISTRESS. 12/12/18 13:22 Vital Signs Temperature 99.6 F 12/12/18 09:25 Pulse Rate 67 12/12/18 09:25 Respiratory Rate 18 12/12/18 09:25 Blood Pressure 127/86 12/12/18 09:25 O2 Sat by Pulse Oximetry (%) Laboratory Tests 12/11/18 12/11/18 12/11/18 12:30 12:30 12:30 WBC 8.5 RBC 4.35 Hgb 13.8 Hct 41.8 MCV 96.2 H MCH 31.6 MCHC 32.9 RDW 12.5 Plt Count 336 MPV 6.6 L D Sodium 138 Potassium 4.2 Chloride 104 Carbon Dioxide 30 Anion Gap 5 L BUN 9 Creatinine 0.7 Creat Clearance w eGFR 122.51 Random Glucose 85 Calcium 8.8 Total Bilirubin 1.0 AST 19 ALT 19 Alkaline Phosphatase 56 Total Protein 6.8 Albumin 4.0 RPR Titer Nonreactive LABS NOTED. Assessment: 12/12/18 13:22 WITHDRAWAL SYMPTOMS. Plan: CONTINUE DETOX. INCREASE DAILY PO FLUID INTAKE. PRN PEPTO-BISMOL PO FOR DIARRHEA.
[2018-12-12] MEDS: MELATONIN 5 MG TABLETS PO PRN (22:29)
[2018-12-12] MEDS: THIAMINE HCL 100 MG TABLET (FP) PO SCH (22:29)
[2018-12-12] MEDS: cloNIDine HCL 0.1 MG TABLET PO PRN (22:31)
[2018-12-13 09:19] VITALS: BP 115/72; PULSE 72; TEMP 96.8
--- NOTE | 2018-12-13 09:55 | HP ---
COWS - Scale Resting Pulse: 0= [place] 80 or Below Sweatin= Chills/Flushing Restless Observation: 1= Difficult to Sit Still Pupil Size: 0= Normal to Room Light Bone or Joint Aches: 2= Severe Diffuse Aches Runny Nose/ Eye Tearin= Runny Nose/Eyes GI Upset > 30mins: 1= Stomach Cramp Tremor Observation: 0= None Yawning Observation: 0= None Anxiety or Irritability: 2=Irritable/Anxious Goose Flesh Skin: 0=Smooth Skin COWS Score: 9 CIWA Score - Admission Criteria OAS Guidelines: Admission for Medically Managed Detox: Requires at least one of the followin. CIWA greater than 12 2. Seizures within the past 24 hours 3. Delirium tremens within the past 24 hours 4. Hallucinations within the past 24 hours 5. Acute intervention needed for co occurring medical disorder 6. Acute intervention needed for co occurring psychiatric disorder 7. Severe withdrawal that cannot be handled at a lower level of care (continued vomiting, continued diarrhea, abnormal vital signs) requiring intravenous medication and/or fluids 8. Admission ROS [facility] Allergies/Adverse Reactions: Allergies Allergy/AdvReac Type Severity Reaction Status Date / Time No Known Allergies Allergy Verified 12/11/18 10:48 - Ebola screening Have you traveled outside of the country in the last 21 days: No Have you had contact with anyone from an Ebola affected area: No Patient History - Patient Medical History Hx Anemia: Yes (X 1. NO CURRENT MED) Hx Asthma: No Hx Chronic Obstructive Pulmonary Disease (COPD): No Hx Cardiac Disorders: No Hx Hypertension: No Hx Hypercholesterolemia: No HX Cerebrovascular Accident: No Hx Seizures: No Hx Diabetes: No Hx Gastrointestinal Disorders: No Hx Genitourinary Disorders: No Hx Sexually Transmitted Disorders: No Hx Renal Disease (ESRD): No Hx Thyroid Disease: No Hx Human Immunodeficiency Virus (HIV): No (NEGATIVE HX) Hx Hepatitis C: No Hx Depression: No Hx Suicide Attempt: No (DENIES) Hx Schizophrenia: No - Patient Surgical History Past Surgical History: No Hx Neurologic Surgery: No Hx Cataract Extraction: No Hx Cardiac Surgery: No Hx Lung Surgery: No Hx Breast Surgery: No Hx Breast Biopsy: No Hx Abdominal Surgery: No Hx Appendectomy: No Hx Cholecystectomy: No Hx Genitourinary Surgery: No Hx Section: No Hx Orthopedic Surgery: No Anesthesia Reaction: No - PPD History Previous Implant?: Yes Documented Results: Negative w/o proof Date: 12/13/18 - Smoking Cessation Smoking history: Current every day smoker Have you smoked in the past 12 months: Yes Aproximately how many cigarettes per day: 20 Hx Chewing Tobacco Use: No Initiated information on smoking cessation: No - Substances abused Heroin Substance route: Inhalation Frequency: Daily Amount used: 25 bags Age of first use: 39 Date of last use: 12/11/18 Cocaine Substance route: Inhalation Frequency: 1-3 times last 30 days Amount used: 1 gram Age of first use: 16 Date of last use: 12/11/18 Family Disease History - Family Disease History Family Disease History: Diabetes: Mother (HTN), CA: Grandparent (), Father (ALCOHOLISM-), Other: Father, Mother Admission Physical Exam [facility] - Vital Signs Vital Signs: Vital Signs - 24 hr 12/12/18 12/12/18 12/12/18 14:04 18:14 21:12 Temperature 98.1 F 100.3 F H 97.7 F Pulse Rate 59 L 59 L 50 L Respiratory 18 18 18 Rate Blood Pressure 132/80 107/68 126/79 12/13/18 12/13/18 12/13/18 00:30 03:30 05:52 Temperature 97.1 F L Pulse Rate 47 L Respiratory 18 18 18 Rate Blood Pressure 126/76 12/13/18 09:19 Temperature 96.8 F L Pulse Rate 72 Respiratory 18 Rate Blood Pressure 115/72 Cleared for Admission [facility] - Detox or Rehab Detox Regimen/Protocol: Methadone/Valium Breathalyzer - Breathalyzer Breathalyzer: 0 Urine Drug Screen - Test Device Lot number: [id number] Expiration date: 07/31/20 - Control Is test valid?: Yes - Results Drug screen NEGATIVE: No Urine drug screen results: MARY-Cocaine, FEN-Fentanyl, MOP-Opiates
[2018-12-13] MEDS ORDERED: diazePAM 5 MG TABLET PO PRN (09:57)
[2018-12-13] MEDS ORDERED: METHADONE HCL 10 MG TABLET (FOR DETOX USE ONLY) PO ONE (10:00)
[2018-12-13] MEDS: PRENATAL VITAMINS W/ FOLIC ACID TABLET (FP) PO SCH (10:06)
--- NOTE | 2018-12-13 10:14 | PN ---
[facility] COWS - Scale Resting Pulse: 0= [place] 80 or Below Sweatin= Chills/Flushing Restless Observation: 1= Difficult to Sit Still Pupil Size: 1= Pupils >than Normal Bone or Joint Aches: 1= Mild Discomfort Runny Nose/ Eye Tearin= Runny Nose/Eyes GI Upset > 30mins: 1= Stomach Cramp Tremor Observation of Outstretched Hands: 1= Tremor [place], Not Seen Yawning Observation: 1= 1-2x During Session Anxiety or Irritability: 1=Feels Anxious/Irritable Goose Flesh Skin: 0=Smooth Skin COWS Score: 10 S Progress Note (SOAP) Subjective: body ache irritable preferring valium prn discontinue clonidin begin valium prn requesting trazadone for insomnia Objective: 12/13/18 10:16 Vital Signs Temperature 96.8 F L 12/13/18 09:19 Pulse Rate 72 12/13/18 09:19 Respiratory Rate 18 12/13/18 09:19 Blood Pressure 115/72 12/13/18 09:19 O2 Sat by Pulse Oximetry (%) Laboratory Last Values WBC 8.5 K/mm3 (4.0-10.0) 12/11/18 12:30 RBC 4.35 M/mm3 (4.00-5.60) 12/11/18 12:30 Hgb 13.8 GM/dL (11.7-16.9) 12/11/18 12:30 Hct 41.8 % (35.4-49) 12/11/18 12:30 MCV 96.2 fl (80-96) H 12/11/18 12:30 MCH 31.6 pg (25.7-33.7) 12/11/18 12:30 MCHC 32.9 g/dl (32.0-35.9) 12/11/18 12:30 RDW 12.5 % (11.9-15.9) 12/11/18 12:30 Plt Count 336 K/MM3 (134-434) 12/11/18 12:30 MPV 6.6 fl (7.5-11.1) L D 12/11/18 12:30 Sodium 138 mmol/L (136-145) 12/11/18 12:30 Potassium 4.2 mmol/L (3.5-5.1) 12/11/18 12:30 Chloride 104 mmol/L (98-107) 12/11/18 12:30 Carbon Dioxide 30 mmol/L (21-32) 12/11/18 12:30 Anion Gap 5 MMOL/L (8-16) L 12/11/18 12:30 BUN 9 mg/dL (7-18) 12/11/18 12:30 Creatinine 0.7 mg/dL (0.55-1.3) 12/11/18 12:30 Creat Clearance w eGFR 122.51 (>60) 12/11/18 12:30 Random Glucose 85 mg/dL (74-106) 12/11/18 12:30 Calcium 8.8 mg/dL (8.5-10.1) 12/11/18 12:30 Total Bilirubin 1.0 mg/dL (0.2-1) 12/11/18 12:30 AST 19 U/L (15-37) 12/11/18 12:30 ALT 19 U/L (13-61) 12/11/18 12:30 Alkaline Phosphatase 56 U/L (45-117) 12/11/18 12:30 Total Protein 6.8 g/dl (6.4-8.2) 12/11/18 12:30 Albumin 4.0 g/dl (3.4-5.0) 12/11/18 12:30 RPR Titer Nonreactive (NONREACTIVE) 12/11/18 12:30 lab noted Assessment: 12/13/18 10:16 opiate withdrawal sx Plan: continue detox
--- NOTE | 2018-12-13 12:05 | DS ---
[facility] Detox Discharge Summary Admission Date: 12/11/18 Discharge Date: 12/13/18 - History Present History: Opioid Dependence Additional Comments: opiate withdrawal sx Laboratory Last Values WBC 8.5 K/mm3 (4.0-10.0) 12/11/18 12:30 RBC 4.35 M/mm3 (4.00-5.60) 12/11/18 12:30 Hgb 13.8 GM/dL (11.7-16.9) 12/11/18 12:30 Hct 41.8 % (35.4-49) 12/11/18 12:30 MCV 96.2 fl (80-96) H 12/11/18 12:30 MCH 31.6 pg (25.7-33.7) 12/11/18 12:30 MCHC 32.9 g/dl (32.0-35.9) 12/11/18 12:30 RDW 12.5 % (11.9-15.9) 12/11/18 12:30 Plt Count 336 K/MM3 (134-434) 12/11/18 12:30 MPV 6.6 fl (7.5-11.1) L D 12/11/18 12:30 Sodium 138 mmol/L (136-145) 12/11/18 12:30 Potassium 4.2 mmol/L (3.5-5.1) 12/11/18 12:30 Chloride 104 mmol/L (98-107) 12/11/18 12:30 Carbon Dioxide 30 mmol/L (21-32) 12/11/18 12:30 Anion Gap 5 MMOL/L (8-16) L 12/11/18 12:30 BUN 9 mg/dL (7-18) 12/11/18 12:30 Creatinine 0.7 mg/dL (0.55-1.3) 12/11/18 12:30 Creat Clearance w eGFR 122.51 (>60) 12/11/18 12:30 Random Glucose 85 mg/dL (74-106) 12/11/18 12:30 Calcium 8.8 mg/dL (8.5-10.1) 12/11/18 12:30 Total Bilirubin 1.0 mg/dL (0.2-1) 12/11/18 12:30 AST 19 U/L (15-37) 12/11/18 12:30 ALT 19 U/L (13-61) 12/11/18 12:30 Alkaline Phosphatase 56 U/L (45-117) 12/11/18 12:30 Total Protein 6.8 g/dl (6.4-8.2) 12/11/18 12:30 Albumin 4.0 g/dl (3.4-5.0) 12/11/18 12:30 RPR Titer Nonreactive (NONREACTIVE) 12/11/18 12:30 lab noted Pertinent Past History: 43 years old male admitted on 12/11/18 for opiate withdrawal stabilization insists to leave the detox unit that "I got my valium and methadone" "you have nothing to give me now" patient is alert no acute distress denies suicidal ideation - Physical Exam Results Vital Signs: Vital Signs Temperature 96.8 F L 12/13/18 09:19 Pulse Rate 72 12/13/18 09:19 Respiratory Rate 18 12/13/18 09:19 Blood Pressure 115/72 12/13/18 09:19 O2 Sat by Pulse Oximetry (%) Pertinent Admission Physical Exam Findings: opiate withdrawal sx discuss medication assisted maintenance treatment program - Treatment Hospital Course: Detox Protocol Followed, Detoxed Safely, Responded well, Discharged Condition Good, Rehab Referral Accepted Patient has Accepted a Rehab Referral to: [facility] - Medication Discharge Medications: Ambulatory Orders NK [No Known Home Medication] 12/18/16 - Diagnosis (1) Opioid dependence with withdrawal Current Visit: Yes Status: Acute (2) Nicotine dependence Current Visit: Yes Status: Acute Qualifiers: Nicotine product type: cigarettes Substance use status: in withdrawal Qualified Code(s): F17.213 - Nicotine dependence, cigarettes, with withdrawal - AMA Did Patient Leave Against Medical Advice: Yes
[2018-12-13] MEDS ORDERED: traZODone HCL 50 MG TABLET (FP) PO ONE (22:00)
[2018-12-14] MEDS ORDERED: METHADONE HCL 10 MG TABLET (FOR DETOX USE ONLY) PO ONE (10:00)
[2018-12-15] MEDS ORDERED: METHADONE HCL 5 MG TABLET (FOR DETOX USE ONLY) PO ONE (06:00)
== END 2018-12-13 12:00 | disposition home or self-care (01) | DRG 773 ==
LOC: YASAS 10:33 → Y3N 12:14
PROVIDERS: ADMIT Surgery; ATTEND Surgery
PROC: HZ2ZZZZ Detoxification Services for Substance Abuse Treatment (ICD-10-PCS; principal; 2018-12-11)
DX: F11.23 Opioid dependence with withdrawal (principal); F14.10 Cocaine abuse, uncomplicated; F17.213 Nicotine dependence, cigarettes, with withdrawal; Z86.2 Personal history of diseases of the blood and blood-forming organs and certain disorders involving the immune mechanism
CPT/HCPCS: 36415; 80053; 85027; 86593; 93005; 93010; J0735